=== PATIENT | female | born 1960 ===

== ENCOUNTER → 2021-07-10 | Outpatient (CLI) | payer MEDICARE ==
[~2021-07-10] MED LIST: ATOR10 PO; CYCL10; ESCI20 PO; MELO7.5 PO; PREG150 PO; TRAZ100 PO; ZOLP5 PO
[2021-07-10 14:31] LABS: Source, Urine Clean Catch
[2021-07-10 15:15] LABS: Appearance, Urine Clear (Clear); Bilirubin, Urine Neg (Neg); Blood, Urine 3+ (Neg); Color, Urine Yellow (P-Yellow); Glucose Qualitative, Urine Neg (Neg); Ketones, Urine Neg (Neg); Leukocyte Esterase, Urine 3+ (Neg); Nitrite, Urine Neg (Neg); Protein, Urine Neg (Neg); Specific Gravity, Urine 1.015 (1.003-1.022); Urobilinogen, Urine NORM (Normal)
[2021-07-10 15:48] LABS: Bacteria Few /hpf; Squamous Epithelial Cells Few /hpf (Few); Transitional Epithelial Cells Rare /hpf (0-Rare)
[2021-07-11 09:23] LABS: Candida species (DNA Probe) Negative (NEGATIVE); G. vaginalis (DNA Probe) Negative (NEGATIVE); T. vaginalis (DNA Probe) Negative (NEGATIVE)
[2021-07-11 16:11] LABS: HPV 16 Negative (Negative); HPV 18 Negative (Negative); HPV OTHER HR TYPES Negative (Negative)
== END | disposition home or self-care (01) ==
LOC: LAB SHORT 13:52
PROVIDERS: Obstetrics & Gynecology
DX: Z01.419 Encounter for gynecological examination (general) (routine) without abnormal findings (principal); N39.41 Urge incontinence; B37.3 Candidiasis of vulva and vagina
CPT/HCPCS: 81001; 87077; 87086; 87186; 87480; 87510; 87624; 87660; G0123

== ENCOUNTER → 2021-08-11 | Outpatient (CLI) | payer MEDICARE ==
[2021-08-11 15:42] LABS: Source, Urine Clean Catch
[2021-08-11 19:13] LABS: Appearance, Urine Clear (Clear); Bilirubin, Urine Neg (Neg); Blood, Urine 4+ (Neg); Color, Urine Yellow (P-Yellow); Glucose Qualitative, Urine Neg (Neg); Ketones, Urine Neg (Neg); Leukocyte Esterase, Urine 2+ (Neg); Nitrite, Urine Neg (Neg); Protein, Urine 1+ (Neg); Urobilinogen, Urine NORM (Normal)
[2021-08-11 19:41] LABS: Bacteria Mod /hpf; Squamous Epithelial Cells Mod /hpf (Few); White Blood Cells, Urine 25-50 /hpf (0-5)
== END | disposition home or self-care (01) ==
LOC: LAB SHORT 15:40
PROVIDERS: Obstetrics & Gynecology
DX: R30.9 Painful micturition, unspecified (principal)
CPT/HCPCS: 81001

== ENCOUNTER 2021-09-23 11:34 | Day surgery (SDC) | payer MEDICARE ==
[~2021-09-23] VITALS: Ht 160 cm; Wt 72.4 kg
[2021-09-23] MEDS ORDERED: ESCI20 PO (12:26)
[2021-09-23] MEDS ORDERED: ATOR10 PO (12:26)
[2021-09-23] MEDS ORDERED: MELO7.5 PO (12:26)
[2021-09-23] MEDS ORDERED: CYCL10 (12:26)
[2021-09-23] MEDS ORDERED: TRAZ100 PO (12:26)
[2021-09-23] MEDS ORDERED: PREG150 PO (12:27)
[2021-09-23] MEDS ORDERED: ZOLP5 PO (12:27)
== END 2021-09-23 14:07 | disposition home or self-care (01) ==
LOC: ORSCSDS 11:34
PROVIDERS: Ophthalmology
PROC: 08RK3JZ Replacement of Left Lens with Synthetic Substitute, Percutaneous Approach (ICD-10-PCS; principal; 2021-09-23 13:00)
DX: H25.13 Age-related nuclear cataract, bilateral (principal); F32.A Depression, unspecified; Z79.899 Other long term (current) drug therapy
CPT/HCPCS: J2001; J2250; J3010; J3301; J7040; V2632

== ENCOUNTER 2021-10-02 11:10 | Day surgery (SDC) | payer MEDICARE ==
[~2021-10-02] VITALS: Ht 157.5 cm; Wt 71.8 kg
--- NOTE | 2021-10-02 11:59 | NUR ---
10/02/21 1159 Tez Pyle 1140, RORY 1143, [facility] [place]
== END 2021-10-02 13:03 | disposition home or self-care (01) ==
LOC: ORSCSDS 11:10
PROVIDERS: Ophthalmology
PROC: 08RJ3JZ Replacement of Right Lens with Synthetic Substitute, Percutaneous Approach (ICD-10-PCS; principal; 2021-10-02 12:30)
DX: H25.11 Age-related nuclear cataract, right eye (principal); Z79.899 Other long term (current) drug therapy
CPT/HCPCS: J2001; J2250; J3010; J3301; J7040; V2632

== ENCOUNTER → 2021-11-18 | Outpatient (CLI) | payer MEDICARE ==
[2021-11-18 09:23] LABS: Source, Urine Clean Catch
[2021-11-18 10:28] LABS: Appearance, Urine Hazy (Clear); Bilirubin, Urine Neg (Neg); Blood, Urine 4+ (Neg); Color, Urine Yellow (P-Yellow); Glucose Qualitative, Urine Neg (Neg); Ketones, Urine Neg (Neg); Leukocyte Esterase, Urine 3+ (Neg); Nitrite, Urine Neg (Neg); Protein, Urine 2+ (Neg); Urobilinogen, Urine NORM (Normal)
[2021-11-18 10:50] LABS: White Blood Cells, Urine TNTC /hpf (0-5)
[2021-11-18 10:51] LABS: Bacteria Many /hpf; Squamous Epithelial Cells Few /hpf (Few)
[2021-11-18 13:51] LABS: Candida species (DNA Probe) Negative (NEGATIVE); G. vaginalis (DNA Probe) Negative (NEGATIVE); T. vaginalis (DNA Probe) Negative (NEGATIVE)
== END | disposition home or self-care (01) ==
LOC: LAB SHORT 09:21
PROVIDERS: Obstetrics & Gynecology
DX: N39.0 Urinary tract infection, site not specified (principal); B37.3 Candidiasis of vulva and vagina
CPT/HCPCS: 81001; 87077; 87086; 87186; 87480; 87510; 87660

== ENCOUNTER → 2021-12-09 | Outpatient (CLI) | payer MEDICARE ==
[2021-12-09 10:16] LABS: Source, Urine Clean Catch
[2021-12-09 13:33] LABS: Appearance, Urine Hazy (Clear); Bilirubin, Urine Neg (Neg); Blood, Urine 2+ (Neg); Color, Urine Yellow (P-Yellow); Glucose Qualitative, Urine Neg (Neg); Ketones, Urine Neg (Neg); Leukocyte Esterase, Urine 3+ (Neg); Nitrite, Urine Neg (Neg); Protein, Urine Neg (Neg); Specific Gravity, Urine 1.015 (1.003-1.022); Urobilinogen, Urine NORM (Normal)
[2021-12-09 14:45] LABS: White Blood Cells, Urine 50-100 /hpf (0-5)
[2021-12-09 14:46] LABS: Bacteria Mod /hpf; Squamous Epithelial Cells Mod /hpf (Few)
== END | disposition home or self-care (01) ==
LOC: LAB SHORT 10:11
PROVIDERS: Obstetrics & Gynecology
DX: N39.0 Urinary tract infection, site not specified (principal)
CPT/HCPCS: 81001; 87077; 87086; 87186

== ENCOUNTER → 2021-12-24 | Outpatient (CLI) | payer MEDICARE | END | disposition home or self-care (01) | LOC: LAB SHORT 09:57 | DX: N39.0 Urinary tract infection, site not specified (principal) | CPT/HCPCS: 87077; 87086; 87186 ==